=== PATIENT | female | born 2000 | race Caucasian/White ===

== ENCOUNTER 2021-05-01 10:52 | Emergency (ER) | payer MEDICAID, BC ==
[2021-05-01] MEDS ORDERED: Sodium Chloride 0.9% 10 ML Syringe FLUSH PRN (11:13)
[2021-05-01] MEDS ORDERED: Ondansetron 4 MG/2 ML SDV IVPUSH ONE (11:13)
--- NOTE | 2021-05-01 11:24 | EDM.PDOC ---
ED HPI GENERAL MEDICAL PROBLEM - General Chief Complaint: Abdominal Pain Stated Complaint: POSSIBLE APPPENDICITIS Time Seen by Provider: 05/01/21 11:00 Source of Information: Reports: Patient History Limitations: Reports: No Limitations - History of Present Illness INITIAL COMMENTS - FREE TEXT/NARRATIVE: patient presented to the ER with a c/o RLQ pain started few hours ago and has been getting worse. + nausea, but no emesis. no fever or chills. h/o ovarian cysts in the past. decreased appetite. Onset: Sudden Duration: Hour(s): (5) Location: Reports: Abdomen Quality: Reports: Sharp Improves with: Reports: None Worsens with: Reports: Movement - Related Data Allergies Allergy/AdvReac Type Severity Reaction Status Date / Time cephalexin [From Keflex] Allergy Other Verified 05/01/21 11:39 methocarbamol [From Robaxin] Allergy Other Verified 05/01/21 11:40 topiramate [From Topamax] Allergy Other Verified 05/01/21 11:39 Past Medical History - Past Health History Medical/Surgical History: Denies Medical/Surgical History Other Musculoskeletal History: chronic back pain ED ROS GENERAL - Review of Systems Review Of Systems: See Below Constitutional: Reports: No Symptoms HEENT: Reports: No Symptoms Respiratory: Reports: No Symptoms Cardiovascular: Reports: No Symptoms GI/Abdominal: Reports: Abdominal Pain : Reports: No Symptoms Musculoskeletal: Reports: No Symptoms Skin: Reports: No Symptoms Neurological: Reports: No Symptoms Psychiatric: Reports: No Symptoms ED EXAM, GI/ABD - Physical Exam Exam: See Below Exam Limited By: No Limitations General Appearance: Alert, WD/WN, Mild Distress Eyes: Bilateral: EOMI Neck: Normal Inspection Respiratory/Chest: No Respiratory Distress Cardiovascular: Normal Peripheral Pulses, Regular Rate, Rhythm GI/Abdominal Exam: Rebound (localized rebound pain over McBurneys), Tender (RLQ) Neurological: Alert, Oriented Course - Vital Signs Last Recorded V/S: Last Vital Signs Temp 36.6 C 05/01/21 12:00 Pulse 82 05/01/21 12:00 Resp 20 05/01/21 12:00 BP 122/72 05/01/21 12:00 Pulse Ox 98 05/01/21 12:00 - Orders/Labs/Meds Orders: Active Orders 24 hr Category Date Time Status Abdomen Pelvis w Cont [CT] Stat Exams 05/01/21 12:42 Taken Iopamidol [Isovue-300 (61%)] Med 05/01/21 12:45 Active 100 ml IV . DIRECTED PRN Sodium Chloride 0.9% [Normal Saline] Med 05/01/21 12:45 Active 50 ml FLUSH ONETIME Sodium Chloride 0.9% [Saline Flush] Med 05/01/21 11:13 Active 10 ml FLUSH ASDIRECTED PRN Saline Lock Insert [OM.PC] Routine Oth 05/01/21 11:13 Ordered Medication Orders Iopamidol (Iopamidol 612 Mg/Ml 100 Ml Bottle) 100 ml IV . DIRECTED PRN PRN Reason: RADIOLOGY EXAM Stop: 05/02/21 12:46 Last Admin: 05/01/21 13:12 Dose: 100 ml Documented by: CHETAN Sodium Chloride (Sodium Chloride 0.9% 10 Ml Syringe) 10 ml FLUSH ASDIRECTED PRN PRN Reason: Keep Vein Open Sodium Chloride (Sodium Chloride 0.9% 50 Ml Sdv) 50 ml FLUSH ONETIME GISSEL Last Admin: 05/01/21 13:12 Dose: 50 ml Documented by: CHETAN Labs: Laboratory Tests 05/01/21 05/01/21 05/01/21 Range/Units 11:40 11:40 11:44 WBC 9.4 (4.0-11.0) K/uL RBC 4.89 (3.80-5.80) M/uL Hgb 14.6 (11.5-16.5) g/dL Hct 43.0 (37.0-47.0) % MCV 88 (76-96) fL MCH 29.9 (27.0-32.0) pg MCHC 34.0 (31.0-35.0) g/dL RDW 13.4 (11.0-16.0) % Plt Count 243 (150-500) K/uL MPV 11.9 H (6.0-10.0) fL Sodium 140 (136-145) mmol/L Potassium 4.0 (3.5-5.1) mmol/L Chloride 105 (98-107) mmol/L Carbon Dioxide 22.4 (21.0-32.0) mmol/L Anion Gap 16.6 H (5.0-15.0) mmol/L BUN 12 (8-26) mg/dL Creatinine 0.75 (0.55-1.02) mg/dL Est Cr Clr Drug Dosing TNP Estimated GFR (MDRD) > 60 (>60) MLS/MIN BUN/Creatinine Ratio 16.0 (6-25) Glucose 97 (74-100) mg/dL Calcium 8.8 (8.5-10.1) mg/dL Urine Color Yellow Urine Appearance Clear (CLEAR) Urine pH 6.0 (5.0-8.0) Ur Specific Dwight 1.015 (1.003-1.030) Urine Protein Negative (NEGATIVE) mg/dL Urine Glucose (UA) Negative (NEGATIVE) mg/dL Urine Ketones Negative (NEGATIVE) mg/dL Urine Occult Blood Trace-intact H (NEGATIVE) Urine Nitrite Negative (NEGATIVE) Urine Bilirubin Negative (NEGATIVE) Urine Urobilinogen 0.2 (0.2-1.0) E.U./dL Ur Leukocyte Esterase Negative (NEGATIVE) Urine RBC 0-5 H /HPF Urine WBC 0-5 H /HPF Ur Squamous Epith Cells Moderate /HPF Urine Bacteria Few /HPF Urine HCG, Qual (NEGATIVE) 05/01/21 Range/Units 12:42 WBC (4.0-11.0) K/uL RBC (3.80-5.80) M/uL Hgb (11.5-16.5) g/dL Hct (37.0-47.0) % MCV (76-96) fL MCH (27.0-32.0) pg MCHC (31.0-35.0) g/dL RDW (11.0-16.0) % Plt Count (150-500) K/uL MPV (6.0-10.0) fL Sodium (136-145) mmol/L Potassium (3.5-5.1) mmol/L Chloride (98-107) mmol/L Carbon Dioxide (21.0-32.0) mmol/L Anion Gap (5.0-15.0) mmol/L BUN (8-26) mg/dL Creatinine (0.55-1.02) mg/dL Est Cr Clr Drug Dosing Estimated GFR (MDRD) (>60) MLS/MIN BUN/Creatinine Ratio (6-25) Glucose (74-100) mg/dL Calcium (8.5-10.1) mg/dL Urine Color Urine Appearance (CLEAR) Urine pH (5.0-8.0) Ur Specific Dwight (1.003-1.030) Urine Protein (NEGATIVE) mg/dL Urine Glucose (UA) (NEGATIVE) mg/dL Urine Ketones (NEGATIVE) mg/dL Urine Occult Blood (NEGATIVE) Urine Nitrite (NEGATIVE) Urine Bilirubin (NEGATIVE) Urine Urobilinogen (0.2-1.0) E.U./dL Ur Leukocyte Esterase (NEGATIVE) Urine RBC /HPF Urine WBC /HPF Ur Squamous Epith Cells /HPF Urine Bacteria /HPF Urine HCG, Qual Negative (NEGATIVE) Meds: Medications Generic Name Dose Route Start Last Admin Trade Name Freq PRN Reason Stop Dose Admin Iopamidol 100 ml 05/01/21 12:45 05/01/21 13:12 Iopamidol 612 Mg/Ml 100 Ml Bottle IV 05/02/21 12:46 100 ml . DIRECTED PRN Administration RADIOLOGY EXAM Sodium Chloride 10 ml 05/01/21 11:13 Sodium Chloride 0.9% 10 Ml Syringe FLUSH ASDIRECTED PRN Keep Vein Open Sodium Chloride 50 ml 05/01/21 12:45 05/01/21 13:12 Sodium Chloride 0.9% 50 Ml Sdv FLUSH 50 ml ONETIME GISSEL Administration Discontinued Medications Generic Name Dose Route Start Last Admin Trade Name Freq PRN Reason Stop Dose Admin Ketorolac Tromethamine Confirm 05/01/21 12:20 Ketorolac 30 Mg/Ml Sdv Administered 05/01/21 12:21 Dose 30 mg .ROUTE .STK-MED ONE Ketorolac Tromethamine 30 mg 05/01/21 12:21 05/01/21 12:22 Ketorolac 30 Mg/Ml Sdv IVPUSH 05/01/21 12:22 30 mg ONETIME ONE Administration Morphine Sulfate 4 mg 05/01/21 11:13 05/01/21 12:18 Morphine 4 Mg/Ml Vial IVPUSH 05/01/21 11:14 Not Given ONETIME ONE Ondansetron HCl 4 mg 05/01/21 11:13 05/01/21 11:48 Ondansetron 4 Mg/2 Ml Sdv IVPUSH 05/01/21 11:14 4 mg ONETIME ONE Administration Ondansetron HCl Confirm 05/01/21 11:58 05/01/21 12:02 Ondansetron 4 Mg/2 Ml Sdv Administered 05/01/21 11:59 Not Given Dose 4 mg .ROUTE .STK-MED ONE - Re-Assessments/Exams Free Text/Narrative Re-Assessment/Exam: vitals WNL lab - no leukocytosis, and normal UA. negative HCG CT abd/pelv w iv- no e/o appendicitis, but it showed right ovarian cyst - simple. no free fluids. pain was controlled with IV toradol discussed with patient - either conservative management until cyst bursts on it's own or referral to surgery for drainage - she prefers to try home management. Departure - Departure Time of Disposition: 14:05 Disposition: Home, Self-Care 01 Condition: Good Clinical Impression: Abdominal pain Qualifiers: Abdominal location: right lower quadrant Qualified Code(s): R10.31 - Right lower quadrant pain Ovarian cyst Qualifiers: Laterality: right Qualified Code(s): N83.201 - Unspecified ovarian cyst, right side - Discharge Information *PRESCRIPTION DRUG MONITORING PROGRAM REVIEWED*: Not Applicable *COPY OF PRESCRIPTION DRUG MONITORING REPORT IN PATIENT SAUD: Not Applicable Instructions: Ovarian Cyst, [id number] Referrals: PCP,None [Primary Care Provider] - Forms: ED Department Discharge, ED Return to Work/School Form Sepsis Event Note (ED) - Focused Exam Vital Signs: Vital Signs Temp Pulse Resp BP Pulse Ox 05/01/21 12:00 36.6 C 82 20 122/72 98 - Problem List & Annotations (1) Abdominal pain SNOMED Code(s): 16929744 Code(s): R10.9 - UNSPECIFIED ABDOMINAL PAIN Status: Acute Priority: Low Current Visit: Yes Qualifiers: Abdominal location: right lower quadrant Qualified Code(s): R10.31 - Right lower quadrant pain (2) Ovarian cyst SNOMED Code(s): 57942973 Code(s): N83.209 - UNSPECIFIED OVARIAN CYST, UNSPECIFIED SIDE Status: Acute Priority: Low Current Visit: Yes Qualifiers: Laterality: right Qualified Code(s): N83.201 - Unspecified ovarian cyst, right side - My Orders Last 24 Hours: My Active Orders 05/01/21 11:13 Sodium Chloride 0.9% [Saline Flush] 10 ml FLUSH ASDIRECTED PRN Saline Lock Insert [OM.PC] Routine 05/01/21 12:42 Abdomen Pelvis w Cont [CT] Stat 05/01/21 12:45 Iopamidol [Isovue-300 (61%)] 100 ml IV . DIRECTED PRN Sodium Chloride 0.9% [Normal Saline] 50 ml FLUSH ONETIME - Assessment/Plan Last 24 Hours: My Active Orders 05/01/21 11:13 Sodium Chloride 0.9% [Saline Flush] 10 ml FLUSH ASDIRECTED PRN Saline Lock Insert [OM.PC] Routine 05/01/21 12:42 Abdomen Pelvis w Cont [CT] Stat 05/01/21 12:45 Iopamidol [Isovue-300 (61%)] 100 ml IV . DIRECTED PRN Sodium Chloride 0.9% [Normal Saline] 50 ml FLUSH ONETIME Plan: - start taking pain and nausea meds as prescribed - follow up with your PCP in 2-7 days as needed - return to the ER if symptoms got worse or any concerns
[2021-05-01] MEDS ORDERED: Ondansetron 4 MG/2 ML SDV ONE (11:58)
[2021-05-01] MEDS: Morphine 4 MG/ML VIAL IVPUSH ONE ×2 (12:06→12:18)
[2021-05-01] MEDS ORDERED: Ketorolac 30 MG/ML SDV ONE (12:20)
[2021-05-01] MEDS ORDERED: Ketorolac 30 MG/ML SDV IVPUSH ONE (12:21)
[2021-05-01] MEDS ORDERED: Sodium Chloride 0.9% 50 ML SDV FLUSH SCH (12:45)
[2021-05-01] MEDS ORDERED: Iopamidol 612 MG/ML 100 ML Bottle IV PRN (12:45)
--- NOTE | 2021-05-02 08:04 | CT ---
DATE OF SERVICE: 05/01/21 CLINICAL DATA: RLQ pain ENHANCED ABDOMEN AND PELVIC CT: Multislice acquisition through the abdomen and pelvis with IV, but without oral contrast was performed. No priors. The lung bases are clear. The heart size is normal. There is mild diffuse fatty infiltration of the liver. No focal hepatic lesions. The gallbladder appears normal. No calcified gallstones. No pericholecystic fluid. The spleen appears normal. The pancreas appears normal. The right and left adrenals appear normal. The right and left kidneys appear normal and enhance symmetrically. No hydronephrosis or hydroureter. There is a small amount of fluid within the bladder. It appears normal. The appendix is not dilated. No evidence of appendicitis. There is a 3.5 cm oval-shaped fluid density structure within the right ovary consistent with right ovarian cyst. Followup ultrasound is recommended to confirm resolution. There is an IUD noted within the uterus. There are multiple mesenteric nodes medial to the cecum. They are not pathologically enlarged. Mesenteric adenitis should be considered. No free air. No free fluid. No dilated loops of bowel. No adenopathy. No aortic aneurysm or dissection. [id number] [facility]
== END 2021-05-01 14:15 | disposition home or self-care (01) ==
LOC: LB.ED 10:52
DX: N83.201 Unspecified ovarian cyst, right side (principal); Z88.1 Allergy status to other antibiotic agents; Z88.8 Allergy status to other drugs, medicaments and biological substances
CPT/HCPCS: 36415; 74177; 80048; 81001; 81025; 85027; 96374; 96375; 99284-25; J1885; J2270; J2405; Q9967

== ENCOUNTER 2021-07-13 15:08 | Emergency (ER) | payer BC, MEDICAID ==
--- NOTE | 2021-07-13 16:08 | EDM.PDOC ---
ED HPI GENERAL MEDICAL PROBLEM - General Stated Complaint: ABDOMINAL PAIN Time Seen by Provider: 07/13/21 15:15 Source of Information: Reports: Patient History Limitations: Reports: No Limitations - History of Present Illness INITIAL COMMENTS - FREE TEXT/NARRATIVE: This patient presents to the emergency department for evaluation of abdominal pain. She states she has had lower pelvic pain for the past 2 months that is particularly bad when she goes to work. She has not had this evaluated in another facility and has not seen her primary care provider. She does have an IUD in place and believes she is not . She has a child who is about 16 months old and had some trouble with an ovarian cyst after this baby was born which seem to get better. She denies fever, change in appetite, nausea, vomiting, diarrhea. Treatments PRODUCT ANALYST: Reports: Other (see below) Other Treatments PRODUCT ANALYST: Tramadol - Related Data Allergies Allergy/AdvReac Type Severity Reaction Status Date / Time cephalexin [From Keflex] Allergy Other Verified 07/13/21 15:41 methocarbamol [From Robaxin] Allergy Other Verified 07/13/21 15:41 topiramate [From Topamax] Allergy Other Verified 07/13/21 15:41 Home Meds: Home Meds Cyclobenzaprine [Flexeril] 10 mg PO DAILY PRN 05/31/21 [History] Orphenadrine [Norflex] 100 mg PO BID PRN #20 tab 05/31/21 [Rx] buPROPion [Wellbutrin] 100 mg PO DAILY 05/31/21 [History] clonazePAM [Clonazepam] 0.5 mg PO ASDIRECTED 05/31/21 [History] Past Medical History - Past Health History Medical/Surgical History: Denies Medical/Surgical History Other Musculoskeletal History: chronic back pain Psychiatric History: Reports: Anxiety ED ROS GENERAL - Review of Systems Review Of Systems: See Below Constitutional: Denies: Fever, Decreased Appetite HEENT: Reports: No Symptoms Respiratory: Reports: No Symptoms Cardiovascular: Reports: No Symptoms : Reports: Pain (Pelvic). Denies: Dysuria, Frequency, Urgency Musculoskeletal: Reports: No Symptoms Skin: Reports: No Symptoms Neurological: Reports: No Symptoms ED EXAM, GI/ABD - Physical Exam Exam: See Below Exam Limited By: No Limitations General Appearance: Alert, WD/WN, No Apparent Distress Ears: Normal External Exam Nose: Normal Inspection Throat/Mouth: Normal Inspection Head: Atraumatic, Normocephalic Respiratory/Chest: No Respiratory Distress, Lungs Clear, Normal Breath Sounds, No Accessory Muscle Use Cardiovascular: Regular Rate, Rhythm GI/Abdominal Exam: Normal Bowel Sounds, Soft, Non-Tender, No Organomegaly, No Distention, No Mass, Pelvis Stable, Tender (No tenderness in abdominal quadrants, tenderness with palpation in bilateral pelvic area and over bladder.) Extremities: Normal Inspection Neurological: Alert, Oriented Psychiatric: Normal Affect Skin Exam: Warm, Dry Course - Orders/Labs/Meds Orders: Active Orders 24 hr Category Date Time Status Abdomen Pelvis w Cont [CT] Stat Exams 07/13/21 16:06 Taken Labs: Laboratory Tests 07/13/21 07/13/21 Range/Units 16:06 16:59 WBC 11.6 H D (4.0-11.0) K/uL RBC 4.60 (3.80-5.80) M/uL Hgb 13.8 (11.5-16.5) g/dL Hct 40.4 (37.0-47.0) % MCV 88 (76-96) fL MCH 30.0 (27.0-32.0) pg MCHC 34.2 (31.0-35.0) g/dL RDW 13.1 (11.0-16.0) % Plt Count 227 (150-500) K/uL MPV 11.6 H (6.0-10.0) fL Neut % (Auto) 68.6 (45.0-70.0) % Lymph % (Auto) 23.7 (20.0-40.0) % Arroyo % (Auto) 6.7 (3.0-10.0) % Eos % (Auto) 0.8 L (1.0-5.0) % Baso % (Auto) 0.2 (0.0-0.5) % Neut # (Auto) 7.94 H (2.00-7.50) K/uL Lymph # (Auto) 2.74 (1.50-4.00) K/uL Arroyo # (Auto) 0.77 (0.20-0.80) K/uL Eos # (Auto) 0.09 (0.04-0.40) K/uL Baso # (Auto) 0.02 (0.02-0.10) K/uL Urine HCG, Qual Negative (NEGATIVE) Meds: Medications Discontinued Medications Generic Name Dose Route Start Last Admin Trade Name Fidelina PRN Reason Stop Dose Admin Iopamidol 100 ml 07/13/21 16:30 07/13/21 16:47 Iopamidol 612 Mg/Ml 100 Ml Bottle IV 100 ml . DIRECTED GISSEL Administration Sodium Chloride 50 ml 07/13/21 16:20 07/13/21 16:47 Sodium Chloride 0.9% 50 Ml Sdv FLUSH 07/13/21 16:21 50 ml ONETIME ONE Administration - Re-Assessments/Exams Free Text/Narrative Re-Assessment/Exam: 07/13/21 19:34 This patient presents with pelvic pain. Overall she looks quite well. A broad differential diagnosis was considered including colitis, appendicitis, intestinal cramping, pyelonephritis, UTI, kidney stone, constipation, diverticulitis, volvulus, ileus, obstruction, , ovarian cyst, ovarian torsion, PID. The work-up in the ED today did not identify definitive cause for her pain. Her abdominal CT was normal. My suspicion of ovarian cyst is high given her history of 1. I also do not suspect she has a intra-abdominal catastrophe or other worrisome etiology for this detention pain. She was hemodynamically stable and quite comfortable. 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 She was encouraged to return to the ED for fevers greater than 102, increasing pain, or or other new symptoms. The patient was stable at the time of discharge Departure - Departure Time of Disposition: 18:00 Disposition: Home, Self-Care 01 Condition: Good Clinical Impression: Pelvic pain - Discharge Information *PRESCRIPTION DRUG MONITORING PROGRAM REVIEWED*: Not Applicable *COPY OF PRESCRIPTION DRUG MONITORING REPORT IN PATIENT SAUD: Not Applicable Instructions: Pelvic Pain, Female, [id number] Referrals: Frank Ruiz MD [Primary Care Provider] - - My Orders Last 24 Hours: My Active Orders 07/13/21 16:06 Abdomen Pelvis w Cont [CT] Stat - Assessment/Plan Last 24 Hours: My Active Orders 07/13/21 16:06 Abdomen Pelvis w Cont [CT] Stat
[2021-07-13] MEDS ORDERED: Sodium Chloride 0.9% 50 ML SDV FLUSH ONE (16:20)
[2021-07-13] MEDS ORDERED: Iopamidol 612 MG/ML 100 ML Bottle IV SCH (16:30)
--- NOTE | 2021-07-16 09:29 | CT ---
DATE OF SERVICE: 07/13/21 CLINICAL DATA: pain ENHANCED ABDOMEN AND PELVIC CT: Multislice acquisition through the abdomen and pelvis with IV, but without oral contrast was performed. Comparison is made to a prior exam dated 05/01/21. The lungs bases are clear. The heart size is normal. The liver is normal size with homogeneous attenuation. No focal hepatic lesions. The gallbladder appears normal. No calcified gallstones. No pericholecystic fluid. No biliary duct dilatation. The spleen appears normal. The pancreas appears normal. The right and left adrenals appear normal. The right and left kidneys appear normal and enhance symmetrically. No hydronephrosis or hydroureter. The bladder is partially fluid-filled. It appears normal. There is an IUD noted within the uterus. There is a moderate amount of fluid noted within the cul-de-sac. The appendix is not dilated. No evidence of appendicitis. No free air. No dilated loops of bowel. No adenopathy. No aortic aneurysm or dissection. IMPRESSION: Free fluid noted within the cul-de-sac. No other significant findings. [id number] [facility]
== END 2021-07-13 17:42 | disposition home or self-care (01) ==
LOC: LB.ED 15:08
DX: R10.2 Pelvic and perineal pain (principal); Z88.1 Allergy status to other antibiotic agents; Z88.8 Allergy status to other drugs, medicaments and biological substances
CPT/HCPCS: 36415; 74177; 81025; 85025; 99284-25; Q9967

== ENCOUNTER 2022-08-27 07:03 | Emergency (ER) | payer BC, MEDICAID ==
[2022-08-27] MEDS: GI Cocktail Oral Solution 30 ML PO ONE (07:30)
[2022-08-27] MEDS: Pantoprazole 40 MG Tab.CR PO ONE (07:30)
[2022-08-27] MEDS: Albuterol 0.083% 2.5 MG/3 ML Neb Soln NEB ONE (08:36)
== END 2022-08-27 08:51 | disposition home or self-care (01) ==
LOC: LB.ED 07:03
DX: K21.9 Gastro-esophageal reflux disease without esophagitis (principal); Z88.1 Allergy status to other antibiotic agents; Z88.8 Allergy status to other drugs, medicaments and biological substances; Z79.899 Other long term (current) drug therapy
CPT/HCPCS: 36415; 71045; 71250; 80053; 84484; 85025; 93005; 94640; 99284; A9270-GY

== ENCOUNTER 2023-06-15 18:45 | Emergency (ER) | payer BC ==
[2023-06-15 20:27] LABS: INFLUENZA A NAA NEGATIVE (NEGATIVE); INFLUENZA B NAA NEGATIVE (NEGATIVE); RESPIRATORY SYNCYTIAL VIR NAA NEGATIVE (NEGATIVE)
[2023-06-15 20:28] LABS: CORONAVIRUS COVID-19 NAA NEGATIVE (NEGATIVE)
== END 2023-06-15 20:45 | disposition home or self-care (01) ==
LOC: LB.ED 18:45
DX: J02.8 Acute pharyngitis due to other specified organisms (principal); E66.9 Obesity, unspecified; K21.9 Gastro-esophageal reflux disease without esophagitis; Z88.1 Allergy status to other antibiotic agents; Z88.8 Allergy status to other drugs, medicaments and biological substances; Z20.822 Contact with and (suspected) exposure to COVID-19; Z68.38 Body mass index [BMI] 38.0-38.9, adult
CPT/HCPCS: 0241U; 99283

== ENCOUNTER 2023-09-06 19:26 | Emergency (ER) | payer BC ==
[2023-09-06 19:37] VITALS: BP 138/84; PULSE 110
== END 2023-09-06 20:37 | disposition home or self-care (01) ==
LOC: LB.ED 19:26
DX: S69.91XA Unspecified injury of right wrist, hand and finger(s), initial encounter (principal); Z88.1 Allergy status to other antibiotic agents; Z88.8 Allergy status to other drugs, medicaments and biological substances; Z79.899 Other long term (current) drug therapy; Z86.16 Personal history of COVID-19; W18.39XA Other fall on same level, initial encounter
CPT/HCPCS: 73110-RT; 99282; 99283

== ENCOUNTER 2023-12-07 04:05 | Emergency (ER) | payer BC, MEDICAID ==
[2023-12-07] MEDS: Ketorolac 60 MG/2 ML SDV IM ONE (04:20)
[2023-12-07 04:42] LABS: BASOPHILS ABSOLUTE AUTO 0.02 K/uL (0.02-0.10); BASOPHILS PERCENT AUTO 0.2 % (0.0-0.5); EOSINOPHILS ABSOLUTE AUTO 0.15 K/uL (0.04-0.40); EOSINOPHILS PERCENT AUTO 1.3 % (1.0-5.0); HEMATOCRIT 40.7 % (37.0-47.0); HEMOGLOBIN 13.1 g/dL (11.5-16.5); LYMPHOCYTES ABSOLUTE AUTO 3.31 K/uL (1.50-4.00); LYMPHOCYTES PERCENT AUTO 28.9 % (20.0-40.0); MEAN CORPUSCULAR HEMOGLOBIN 29.8 pg (27.0-32.0); MEAN CORPUSCULAR HGB CONC 32.2 g/dL (31.0-35.0); MEAN CORPUSCULAR VOLUME 93 fL (76-96); MEAN PLATELET VOLUME 11.6 fL (6.0-10.0); MONOCYTES ABSOLUTE AUTO 1.05 K/uL (0.20-0.80); MONOCYTES PERCENT AUTO 9.2 % (3.0-10.0); NEUTROPHILS ABSOLUTE AUTO 6.91 K/uL (2.00-7.50); NEUTROPHILS PERCENT AUTO 60.4 % (45.0-70.0); PLATELET COUNT,PLT 225 K/uL (150-500); RED BLOOD CELL COUNT 4.39 M/uL (3.80-5.80); RED CELL DISTRIBUTION WIDTH 13.1 % (11.0-16.0); WHITE BLOOD CELL COUNT,WBC 11.4 K/uL (4.0-11.0)
[2023-12-07 05:01] LABS: ALBUMIN 3.5 g/dL (3.4-5.0); ANION GAP 13.7 mmol/L (5.0-15.0); BILIRUBIN TOTAL 0.4 mg/dL (0.0-1.0); BUN/CREATININE RATIO 11.6 (6-25); CALCIUM 8.5 mg/dL (8.5-10.1); CREATININE 0.86 mg/dL (0.55-1.02); EST CRCL DRUG DOSING (CG) 94.43 mL/min; POTASSIUM,K 3.7 mmol/L (3.5-5.1); PROTEIN TOTAL,TP 7.1 g/dL (6.4-8.2)
[2023-12-07 05:16] LABS: APPEARANCE,URINE CLEAR (CLEAR); BILIRUBIN,URINE NEGATIVE (NEGATIVE); COLOR,URINE YELLOW; GLUCOSE,URINE NEGATIVE (NEGATIVE); KETONES,URINE NEGATIVE (NEGATIVE); LEUKOCYTE ESTERASE,URINE NEGATIVE (NEGATIVE); NITRITE,URINE NEGATIVE (NEGATIVE); OCCULT BLOOD,URINE NEGATIVE (NEGATIVE); PROTEIN,URINE NEGATIVE (NEGATIVE); UROBILINOGEN,URINE 0.2 E.U./dL (0.2-1.0)
[2023-12-07 05:17] LABS: AMPHETAMINES SCREEN, URINE NEGATIVE (NEGATIVE); BARBITURATE SCREEN,URINE NEGATIVE (NEGATIVE); BENZODIAZEPINES SCREEN,URINE NEGATIVE (NEGATIVE); METHADONE SCREEN, URINE NEGATIVE (NEGATIVE); METHAMPHETAMINES SCREEN, URINE NEGATIVE (NEGATIVE); OXYCODONE SCREEN,URINE NEGATIVE (NEGATIVE); THC SCREEN,URINE 50 NG/ML NEGATIVE (NEGATIVE)
[2023-12-07 05:20] LABS: BACTERIA,URINE FEW /HPF; RBC,URINE NOT SEEN /HPF; SQUAMOUS EPITHELIAL CELLS,UR FEW /HPF; WBC,URINE 0-5 /HPF
[2023-12-07] MEDS: HYDROmorphone 2 MG/ML Syringe IM ONE (05:49)
[2023-12-07] MEDS: HYDROmorphone 2 MG/ML Syringe ONE (05:56)
[2023-12-07 06:24] VITALS: BP 142/70; PULSE 91
== END 2023-12-07 06:11 | disposition home or self-care (01) ==
LOC: LB.ED 04:05
DX: S16.1XXA Strain of muscle, fascia and tendon at neck level, initial encounter (principal); J45.909 Unspecified asthma, uncomplicated; Z86.16 Personal history of COVID-19; Z79.899 Other long term (current) drug therapy; Z88.1 Allergy status to other antibiotic agents; Z88.8 Allergy status to other drugs, medicaments and biological substances; X58.XXXA Exposure to other specified factors, initial encounter
CPT/HCPCS: 36415; 72125; 72128; 80053; 80307; 81001; 85025; 96372; 99283; 99284; J1170; J1885

== ENCOUNTER 2024-01-26 23:54 | Emergency (ER) | payer BC, MEDICAID ==
[2024-01-27] MEDS: Amoxicillin/Clavulanate K 875-125 MG Tab PO SCH (00:43)
[2024-01-27 01:25] LABS: INFLUENZA A NAA NEGATIVE (NEGATIVE); INFLUENZA B NAA NEGATIVE (NEGATIVE); RESPIRATORY SYNCYTIAL VIR NAA NEGATIVE (NEGATIVE)
[2024-01-27 01:27] LABS: CORONAVIRUS COVID-19 NAA NEGATIVE (NEGATIVE)
[2024-01-28] MEDS: Amoxicillin/Clavulanate K 875-125 MG Tab ONE (07:23)
== END 2024-01-27 00:50 | disposition home or self-care (01) ==
LOC: LB.ED 23:54
DX: J02.9 Acute pharyngitis, unspecified (principal); J45.909 Unspecified asthma, uncomplicated; K21.9 Gastro-esophageal reflux disease without esophagitis; E66.9 Obesity, unspecified; Z88.1 Allergy status to other antibiotic agents; Z88.8 Allergy status to other drugs, medicaments and biological substances; Z79.51 Long term (current) use of inhaled steroids; Z86.16 Personal history of COVID-19; Z68.38 Body mass index [BMI] 38.0-38.9, adult
CPT/HCPCS: 0241U; 99283; A9270-GY

== ENCOUNTER 2024-02-12 16:19 | Emergency (ER) | payer BC, MEDICAID ==
[2024-02-12 17:24] LABS: BASOPHILS ABSOLUTE AUTO 0.01 K/uL (0.02-0.10); BASOPHILS PERCENT AUTO 0.1 % (0.0-0.5); EOSINOPHILS ABSOLUTE AUTO 0.09 K/uL (0.04-0.40); EOSINOPHILS PERCENT AUTO 1.1 % (1.0-5.0); HEMATOCRIT 44.4 % (37.0-47.0); HEMOGLOBIN 14.8 g/dL (11.5-16.5); LYMPHOCYTES ABSOLUTE AUTO 2.57 K/uL (1.50-4.00); LYMPHOCYTES PERCENT AUTO 32.7 % (20.0-40.0); MEAN CORPUSCULAR HGB CONC 33.3 g/dL (31.0-35.0); MEAN CORPUSCULAR VOLUME 90 fL (76-96); MEAN PLATELET VOLUME 11.5 fL (6.0-10.0); MONOCYTES ABSOLUTE AUTO 0.53 K/uL (0.20-0.80); MONOCYTES PERCENT AUTO 6.8 % (3.0-10.0); NEUTROPHILS ABSOLUTE AUTO 4.65 K/uL (2.00-7.50); NEUTROPHILS PERCENT AUTO 59.3 % (45.0-70.0); PLATELET COUNT,PLT 247 K/uL (150-500); RED BLOOD CELL COUNT 4.94 M/uL (3.80-5.80); RED CELL DISTRIBUTION WIDTH 13.1 % (11.0-16.0); WHITE BLOOD CELL COUNT,WBC 7.9 K/uL (4.0-11.0)
[2024-02-12] MEDS: Lactated Ringers 1,000 ML IV ONE (17:27)
[2024-02-12 17:51] LABS: A/G RATIO 1.1 (0.8-2.0); ANION GAP 14.4 mmol/L (5.0-15.0); BILIRUBIN TOTAL 0.5 mg/dL (0.0-1.0); BUN/CREATININE RATIO 11.7 (6-25); CARBON DIOXIDE,CO2 25.4 mmol/L (21.0-32.0); CREATININE 0.77 mg/dL (0.55-1.02); EST CRCL DRUG DOSING (CG) 105.46 mL/min; PHOSPHORUS 4.1 mg/dL (2.5-4.9); POTASSIUM,K 3.8 mmol/L (3.5-5.1); PROTEIN TOTAL,TP 7.8 g/dL (6.4-8.2)
[2024-02-12] MEDS: diphenhydrAMINE 50 MG/ML SDV IVPUSH ONE (18:45)
[2024-02-12] MEDS: Magnesium Sulfate/Water 2 GM in Premix Bag 1 BAG IV ONE ×2 (18:49→20:13)
[2024-02-12] MEDS: Magnesium Sulfate/Water 50 ML ONE ×2 (18:52→20:45)
[2024-02-12] MEDS: Magnesium Sulfate/Water 4 GM in Premix Bag 1 BAG IV ONE (18:52)
[2024-02-12] MEDS: diphenhydrAMINE 50 MG/ML SDV ONE (18:52)
[2024-02-12] MEDS: Ondansetron 4 MG/2 ML SDV IVPUSH ONE (19:03)
[2024-02-12] MEDS: Ondansetron 4 MG/2 ML SDV ONE (19:10)
== END 2024-02-12 20:53 | disposition home or self-care (01) ==
LOC: LB.ED 16:19
DX: G43.519 Persistent migraine aura without cerebral infarction, intractable, without status migrainosus (principal); J45.909 Unspecified asthma, uncomplicated; K21.9 Gastro-esophageal reflux disease without esophagitis; E66.9 Obesity, unspecified; Z68.38 Body mass index [BMI] 38.0-38.9, adult; Z86.16 Personal history of COVID-19; Z88.8 Allergy status to other drugs, medicaments and biological substances; Z79.899 Other long term (current) drug therapy
CPT/HCPCS: 36415; 70450; 80053; 83735; 84100; 85025; 93005; 93010; 96361; 96365; 96375; 96376; 99283; 99284-25; J1200; J2405; J3475; J7120

== ENCOUNTER 2024-05-28 00:15 | Emergency (ER) | payer BC, MEDICAID ==
[2024-05-28] MEDS ORDERED: Sodium Chloride 0.9% 10 ML Syringe FLUSH PRN (00:38)
[2024-05-28] MEDS: Ketorolac 30 MG/ML SDV IM ONE (00:52)
[2024-05-28] MEDS: Ketorolac 30 MG/ML SDV ONE (00:53)
[2024-05-28 01:09] LABS: HEMATOCRIT 42.6 % (37.0-47.0); HEMOGLOBIN 14.3 g/dL (11.5-16.5); MEAN CORPUSCULAR HEMOGLOBIN 30.6 pg (27.0-32.0); MEAN CORPUSCULAR HGB CONC 33.6 g/dL (31.0-35.0); MEAN PLATELET VOLUME 11.7 fL (6.0-10.0); RED BLOOD CELL COUNT 4.68 M/uL (3.80-5.80); RED CELL DISTRIBUTION WIDTH 13.2 % (11.0-16.0); WHITE BLOOD CELL COUNT,WBC 12.2 K/uL (4.0-11.0)
[2024-05-28 01:12] LABS: ANION GAP 14.3 mmol/L (5.0-15.0); BUN/CREATININE RATIO 8.1 (6-25); CALCIUM 9.2 mg/dL (8.5-10.1); CARBON DIOXIDE,CO2 25.3 mmol/L (21.0-32.0); CREATININE 0.99 mg/dL (0.55-1.02); EST CRCL DRUG DOSING (CG) 82.03 mL/min; POTASSIUM,K 3.6 mmol/L (3.5-5.1)
[2024-05-28 01:33] LABS: TROPONIN I HIGH SENSITIVITY < 4.0 pg/ml (<=60.4)
== END 2024-05-28 01:55 | disposition home or self-care (01) ==
LOC: LB.ED 00:15
DX: S09.90XA Unspecified injury of head, initial encounter (principal); S20.212A Contusion of left front wall of thorax, initial encounter; J45.909 Unspecified asthma, uncomplicated; K21.9 Gastro-esophageal reflux disease without esophagitis; Z88.1 Allergy status to other antibiotic agents; Z88.8 Allergy status to other drugs, medicaments and biological substances; Z79.51 Long term (current) use of inhaled steroids; Z79.899 Other long term (current) drug therapy; Z86.16 Personal history of COVID-19; W10.9XXA Fall (on) (from) unspecified stairs and steps, initial encounter
CPT/HCPCS: 36415; 70450; 71101-LT; 80048; 83735; 84484; 85027; 93005; 96372; 99285; J1885

== ENCOUNTER 2024-07-15 18:37 | Emergency (ER) | payer BC, MEDICAID ==
[2024-07-15] MEDS: Ketorolac 30 MG/ML SDV IM ONE (19:46)
[2024-07-16] MEDS: Ketorolac 30 MG/ML SDV ONE (09:19)
== END 2024-07-15 20:00 | disposition home or self-care (01) ==
LOC: LB.ED 18:37
DX: S29.012A Strain of muscle and tendon of back wall of thorax, initial encounter (principal); K21.9 Gastro-esophageal reflux disease without esophagitis; E66.9 Obesity, unspecified; Z86.16 Personal history of COVID-19; Z79.899 Other long term (current) drug therapy; Z88.1 Allergy status to other antibiotic agents; Z88.8 Allergy status to other drugs, medicaments and biological substances; Z68.38 Body mass index [BMI] 38.0-38.9, adult; X58.XXXA Exposure to other specified factors, initial encounter
CPT/HCPCS: 96372; 99283; J1885

== ENCOUNTER 2024-09-28 17:20 | Emergency (ER) | payer BC, MEDICAID ==
[2024-09-28] MEDS ORDERED: Sodium Chloride 0.9% 10 ML Syringe FLUSH PRN (17:43)
[2024-09-28 17:58] LABS: HEMATOCRIT 40.7 % (37.0-47.0); HEMOGLOBIN 13.8 g/dL (11.5-16.5); MEAN CORPUSCULAR HEMOGLOBIN 30.4 pg (27.0-32.0); MEAN CORPUSCULAR HGB CONC 33.9 g/dL (31.0-35.0); MEAN PLATELET VOLUME 11.3 fL (6.0-10.0); RED BLOOD CELL COUNT 4.54 M/uL (3.80-5.80); WHITE BLOOD CELL COUNT,WBC 9.7 K/uL (4.0-11.0)
[2024-09-28 18:10] LABS: APPEARANCE,URINE CLOUDY (CLEAR); BILIRUBIN,URINE NEGATIVE (NEGATIVE); COLOR,URINE YELLOW; GLUCOSE,URINE NEGATIVE (NEGATIVE); KETONES,URINE NEGATIVE (NEGATIVE); LEUKOCYTE ESTERASE,URINE NEGATIVE (NEGATIVE); NITRITE,URINE NEGATIVE (NEGATIVE); OCCULT BLOOD,URINE NEGATIVE (NEGATIVE); PH,URINE 5.5 (5.0-8.0); PROTEIN,URINE NEGATIVE (NEGATIVE); UROBILINOGEN,URINE 0.2 E.U./dL (0.2-1.0)
[2024-09-28] MEDS: Sodium Chloride 0.9% 50 ML SDV FLUSH ONE (18:18)
[2024-09-28] MEDS: Iopamidol 612 MG/ML 100 ML Bottle IV SCH (18:18)
[2024-09-28 18:19] LABS: A/G RATIO 1.1 (0.8-2.0); ALANINE AMINOTRANSFERASE,ALT 23 U/L (12-78); ALBUMIN 4.2 g/dL (3.4-5.0); ALKALINE PHOSPHATASE 79 U/L (46-116); ANION GAP 14.6 mmol/L (5.0-15.0); ASPARTATE AMNIOTRANSFERASE,AST 26 U/L (15-37); BILIRUBIN TOTAL 0.8 mg/dL (0.0-1.0); BLOOD UREA NITROGEN,BUN 11 mg/dL (8-26); BUN/CREATININE RATIO 12.9 (6-25); CALCIUM 9.1 mg/dL (8.5-10.1); CARBON DIOXIDE,CO2 26.8 mmol/L (21.0-32.0); CHLORIDE,CL 105 mmol/L (98-107); CREATININE 0.85 mg/dL (0.55-1.02); EST CRCL DRUG DOSING (CG) 95.54 mL/min; ESTIMATED GFR 98 mL/min (>60); GLUCOSE RANDOM 98 mg/dL (74-100); POTASSIUM,K 4.4 mmol/L (3.5-5.1); PROTEIN TOTAL,TP 8.1 g/dL (6.4-8.2); SODIUM,NA 142 mmol/L (136-145)
[2024-09-28 18:28] LABS: C-REACTIVE PROTEIN < 5.0 mg/L (<5.0)
[2024-09-28] MEDS: Ketorolac 15 MG/ML SDV IVPUSH SCH (20:04)
[2024-09-28 20:18] VITALS: BP 119/67; PULSE 75
[2024-09-28] MEDS: Ketorolac 30 MG/ML SDV ONE (20:21)
== END 2024-09-28 20:12 | disposition home or self-care (01) ==
LOC: LB.ED 17:20
DX: R10.31 Right lower quadrant pain (principal); J45.909 Unspecified asthma, uncomplicated; K21.9 Gastro-esophageal reflux disease without esophagitis; E66.9 Obesity, unspecified; Z86.16 Personal history of COVID-19; Z79.899 Other long term (current) drug therapy; Z88.1 Allergy status to other antibiotic agents; Z88.8 Allergy status to other drugs, medicaments and biological substances
CPT/HCPCS: 36415; 74177; 80053; 81003; 81025; 85027; 86140; 96374; 99284; 99284-25; J1885; J3490; Q9967

== ENCOUNTER 2024-11-13 19:52 | Emergency (ER) | payer BC, MEDICAID ==
[2024-11-13] MEDS: Ketorolac 30 MG/ML SDV IM ONE (21:15)
== END 2024-11-13 21:25 | disposition home or self-care (01) ==
LOC: LB.ED 19:52
DX: M94.0 Chondrocostal junction syndrome [Tietze] (principal); J45.909 Unspecified asthma, uncomplicated; K21.9 Gastro-esophageal reflux disease without esophagitis; E66.9 Obesity, unspecified; Z68.38 Body mass index [BMI] 38.0-38.9, adult; Z86.16 Personal history of COVID-19; Z88.1 Allergy status to other antibiotic agents; Z88.8 Allergy status to other drugs, medicaments and biological substances; Z79.51 Long term (current) use of inhaled steroids; Z79.899 Other long term (current) drug therapy
CPT/HCPCS: 93005; 96372; 99284; J1885

== ENCOUNTER 2024-12-26 20:51 | Emergency (ER) | payer BC, MEDICAID ==
[2024-12-26] MEDS ORDERED: Sodium Chloride 0.9% 10 ML Syringe FLUSH PRN (21:03)
[2024-12-26] MEDS: Sodium Chloride 0.9% 500 ML IV ONE (21:25)
[2024-12-26 21:38] LABS: BASOPHILS ABSOLUTE AUTO 0.01 K/uL (0.02-0.10); BASOPHILS PERCENT AUTO 0.1 % (0.0-0.5); EOSINOPHILS ABSOLUTE AUTO 0.09 K/uL (0.04-0.40); EOSINOPHILS PERCENT AUTO 0.7 % (1.0-5.0); HEMATOCRIT 40.3 % (37.0-47.0); HEMOGLOBIN 13.6 g/dL (11.5-16.5); MEAN CORPUSCULAR HEMOGLOBIN 30.4 pg (27.0-32.0); MEAN CORPUSCULAR HGB CONC 33.7 g/dL (31.0-35.0); MEAN CORPUSCULAR VOLUME 90 fL (76-96); MEAN PLATELET VOLUME 11.8 fL (6.0-10.0); MONOCYTES ABSOLUTE AUTO 1.03 K/uL (0.20-0.80); MONOCYTES PERCENT AUTO 7.5 % (3.0-10.0); NEUTROPHILS ABSOLUTE AUTO 9.09 K/uL (2.00-7.50); NEUTROPHILS PERCENT AUTO 65.7 % (45.0-70.0); PLATELET COUNT,PLT 228 K/uL (150-500); RED BLOOD CELL COUNT 4.47 M/uL (3.80-5.80); RED CELL DISTRIBUTION WIDTH 12.8 % (11.0-16.0); WHITE BLOOD CELL COUNT,WBC 13.8 K/uL (4.0-11.0)
[2024-12-26] MEDS: Ondansetron 4 MG/2 ML SDV IVPUSH ONE (21:48)
[2024-12-26 21:51] LABS: APPEARANCE,URINE CLEAR (CLEAR); BILIRUBIN,URINE NEGATIVE (NEGATIVE); COLOR,URINE YELLOW; GLUCOSE,URINE NEGATIVE (NEGATIVE); KETONES,URINE NEGATIVE (NEGATIVE); OCCULT BLOOD,URINE LARGE (NEGATIVE); PROTEIN,URINE NEGATIVE (NEGATIVE); UROBILINOGEN,URINE 0.2 E.U./dL (0.2-1.0)
[2024-12-26 21:52] LABS: LEUKOCYTE ESTERASE,URINE NEGATIVE (NEGATIVE); NITRITE,URINE NEGATIVE (NEGATIVE); RBC,URINE 20-30 /HPF; WBC,URINE 0-5 /HPF
[2024-12-26 21:53] LABS: BACTERIA,URINE RARE /HPF; HYALINE CASTS,URINE RARE /HPF; SQUAMOUS EPITHELIAL CELLS,UR MODERATE /HPF
[2024-12-26] MEDS: Sodium Chloride 0.9% 1,000 ML IV SCH (21:59)
[2024-12-26 22:19] LABS: ANION GAP 13.4 mmol/L (5.0-15.0); BUN/CREATININE RATIO 12.4 (6-25); CALCIUM 8.9 mg/dL (8.5-10.1); CARBON DIOXIDE,CO2 23.1 mmol/L (21.0-32.0); CREATININE 0.89 mg/dL (0.55-1.02); EST CRCL DRUG DOSING (CG) 90.46 mL/min; POTASSIUM,K 3.5 mmol/L (3.5-5.1)
[2024-12-26] MEDS: Acetaminophen 500 MG Tab PO ONE (22:53)
== END 2024-12-26 23:00 | disposition home or self-care (01) ==
LOC: LB.ED 20:51 → SUPCPDRO 20:51 → LB.ED 23:00
DX: O20.0 Threatened abortion (principal); J45.909 Unspecified asthma, uncomplicated; K21.9 Gastro-esophageal reflux disease without esophagitis; E66.9 Obesity, unspecified; Z88.1 Allergy status to other antibiotic agents; Z88.8 Allergy status to other drugs, medicaments and biological substances; Z79.899 Other long term (current) drug therapy; Z86.16 Personal history of COVID-19; Z68.41 Body mass index [BMI] 40.0-44.9, adult; Z3A.00 Weeks of gestation of pregnancy not specified
CPT/HCPCS: 36415; 80048; 81001; 84702; 85025; 96361; 96374; 99284; A9270; C1758; J2405; J7030; 99283

== ENCOUNTER 2025-02-21 14:41 | Emergency (ER) | payer BC, MEDICAID ==
[2025-02-21] MEDS: Sodium Chloride 0.9% 1,000 ML IV ONE (15:40)
[2025-02-21] MEDS ORDERED: Sodium Chloride 0.9% 10 ML Syringe FLUSH PRN (15:44)
[2025-02-21 15:51] LABS: HEMATOCRIT 38.8 % (37.0-47.0); HEMOGLOBIN 13.4 g/dL (11.5-16.5); MEAN CORPUSCULAR HEMOGLOBIN 30.5 pg (27.0-32.0); MEAN CORPUSCULAR HGB CONC 34.5 g/dL (31.0-35.0); RED BLOOD CELL COUNT 4.4 M/uL (3.80-5.80); WHITE BLOOD CELL COUNT,WBC 12.1 K/uL (4.0-11.0)
[2025-02-21] MEDS: Metoclopramide 10 MG/2 ML SDV IV SCH (16:04)
[2025-02-21 16:07] LABS: ANION GAP 15.1 mmol/L (5.0-15.0); BUN/CREATININE RATIO 9.4 (6-25); CALCIUM 9.1 mg/dL (8.5-10.1); CARBON DIOXIDE,CO2 22.5 mmol/L (21.0-32.0); CREATININE 0.64 mg/dL (0.55-1.02); EST CRCL DRUG DOSING (CG) 125.79 mL/min; POTASSIUM,K 3.6 mmol/L (3.5-5.1)
[2025-02-22] MEDS: Metoclopramide 10 MG/2 ML SDV ONE (11:14)
== END 2025-02-21 17:45 | disposition home or self-care (01) ==
LOC: LB.ED 14:41 → SUPCPDRO 14:41 → LB.ED 17:45
DX: O21.0 Mild hyperemesis gravidarum (principal); Z87.891 Personal history of nicotine dependence; Z86.16 Personal history of COVID-19; Z88.1 Allergy status to other antibiotic agents; Z88.8 Allergy status to other drugs, medicaments and biological substances; Z79.51 Long term (current) use of inhaled steroids; Z79.82 Long term (current) use of aspirin; Z79.899 Other long term (current) drug therapy; Z3A.15 15 weeks gestation of pregnancy
CPT/HCPCS: 36415; 80048; 85027; 96361; 96374; 99283; 99284-25; J2765; J7030

== ENCOUNTER 2025-03-11 21:44 | Emergency (ER) | payer BC, MEDICAID ==
[2025-03-11 22:22] LABS: APPEARANCE,URINE SLIGHTLY CLOUDY (CLEAR); COLOR,URINE OTHER; GLUCOSE,URINE NEGATIVE (NEGATIVE); PH,URINE 6.5 (5.0-8.0); PROTEIN,URINE NEGATIVE (NEGATIVE)
[2025-03-11 22:23] LABS: BILIRUBIN,URINE NEGATIVE (NEGATIVE); KETONES,URINE NEGATIVE (NEGATIVE); LEUKOCYTE ESTERASE,URINE TRACE (NEGATIVE); NITRITE,URINE NEGATIVE (NEGATIVE); OCCULT BLOOD,URINE NEGATIVE (NEGATIVE); UROBILINOGEN,URINE 0.2 E.U./dL (0.2-1.0)
[2025-03-11 22:24] LABS: BACTERIA,URINE FEW /HPF; RBC,URINE NOT SEEN /HPF; SQUAMOUS EPITHELIAL CELLS,UR OCCASIONAL /HPF
[2025-03-11] MEDS: Acetaminophen 500 MG Tab PO ONE (22:58)
== END 2025-03-12 00:15 | disposition home or self-care (01) ==
LOC: LB.ED 21:44
DX: R20.2 Paresthesia of skin (principal); R20.0 Anesthesia of skin; J45.909 Unspecified asthma, uncomplicated; E66.9 Obesity, unspecified; Z68.38 Body mass index [BMI] 38.0-38.9, adult; Z79.899 Other long term (current) drug therapy; Z88.8 Allergy status to other drugs, medicaments and biological substances; Z88.0 Allergy status to penicillin
CPT/HCPCS: 36415; 81001; 84484; 87086; 93005; 99283; 99285; A9270-GY